=== PATIENT | female | born 1995 | race Caucasian/White ===

== ENCOUNTER 2016-03-31 19:14 | Outpatient (CLI) | payer OTHER ==
--- NOTE | 2016-03-31 20:00 | L&D Flow Sheet ---
LD Flowsheet Datetime Report Generated by CPN: 03/31/2016 20:00 Datetime: 03/31/2016 19:54 Pain Pain Scale: 3 (Dianne Ledgerwood, RN) Pain Presence: Constant (Dianne Ledgerwood, RN) Pain Type: Dull (Dianne Ledgerwood, RN) Vaginal Exam Vaginal Bleeding: None (Dianne Carbone, PROMISE) Maternal Assessment Level of Consciousness: Fully Conscious (Dianne Carbone, PROMISE) DTR's/Clonus: DTRs 2+; No Clonus (Dianne Carbone, PROMISE) Headache: Denies (Dianne Carbone RN) Breath Sounds, Left: Clear and Equal (Dianne Carbone RN) Breath Sounds, Right: Clear and Equal (Dianne Carbone, PROMISE) Nausea/Vomiting: Denies (Dianne Carbone RN) RUQ Epigastric Pain: Denies (Dianne Carbone RN)
[2016-03-31 20:10] LABS: AMNISURE (ROM) NEGATIVE (NEGATIVE)
[2016-03-31 20:15] LABS: APPEARANCE,URINE SLIGHTLY-CLOUDY; BILIRUBIN,URINE NEGATIVE (NEGATIVE); GLUCOSE, URINE NEGATIVE (NEGATIVE); KETONES,URINE NEGATIVE (NEGATIVE); LEUKOCYTE ESTERASE,URINE NEGATIVE (NEGATIVE); NITRITE,URINE NEGATIVE (NEGATIVE); PROTEIN,URINE NEGATIVE (NEGATIVE); URINE SPECIFIC GRAVITY 1.029; UROBILINOGEN,URINE NEGATIVE mg/dL (<2.0)
[2016-03-31 20:34] LABS: URINE BARBITURATES SCREEN NEGATIVE; URINE METHADONE SCREEN NEGATIVE; URINE OPIATES LOW NEGATIVE; URINE PHENCYCLIDINE SCREEN NEGATIVE
== END 2016-03-31 20:33 | disposition home or self-care (01) ==
LOC: LC 19:14
PROVIDERS: ATTEND Obstetrics & Gynecology
PROC: 4A1HXCZ Monitoring of Products of Conception, Cardiac Rate, External Approach (ICD-10-PCS; principal; 2016-03-31)
DX: Z34.92 Encounter for supervision of normal pregnancy, unspecified, second trimester (principal); Z3A.22 22 weeks gestation of pregnancy
CPT/HCPCS: 80307; 81001; 84112

== ENCOUNTER 2016-07-25 16:35 | Outpatient (CLI) | payer OTHER ==
[2016-07-25 17:43] LABS: ABSOLUTE EOSINOPHILS # (AUTO) 0.1 10^3/uL (0.0-0.6); ABSOLUTE MONOCYTES (AUTO) 1.3 10^3/uL (0.1-1.4); ABSOLUTE NEUT (AUTO) 6.3 10^3/uL (1.7-8.2); BASOPHILS % (AUTO) 0.2 % (0-2); EOSINOPHILS % (AUTO) 1.5 % (0-6); HEMATOCRIT 37.2 % (36.0-47.0); HEMOGLOBIN 12.2 g/dL (12.0-15.5); HGB HCT DIFFERENCE -0.6; LYMPHOCYTES % (AUTO) 20.2 % (13-45); MEAN CORPUSCULAR HEMOGLOBIN 29.2 pg (27.0-33.4); MEAN CORPUSCULAR HGB CONC 32.7 g/dL (32.0-36.0); MEAN CORPUSCULAR VOLUME 89 fl (80-97); MONOCYTES % (AUTO) 13.4 % (3-13); RED BLOOD COUNT 4.17 10^6/uL (3.72-5.28); RED CELL DISTRIBUTION WIDTH 13.7 % (11.5-14.0); SEGMENTED NEUTROPHILS % (AUTO) 64.7 % (42-78); WHITE BLOOD COUNT 9.7 10^3/uL (4.0-10.5)
--- NOTE | 2016-07-25 17:56 | Non Stress Test Report ---
Non Stress Test Datetime Report Generated by CPN: 07/25/2016 17:56 DEMOGRAPHIC EGA NST: 39.3 INDICATION Indication for Study: Other MONITORING Monitor Explained: Monitor Explained; Test Explained; Patient Verbalized Understanding Time on Monitor: 07/25/2016 16:50 Time off Monitor: 07/25/2016 17:17 NST Duration: 27 NST INTERVENTIONS NST Interventions: PO Hydration Physician Notified NST: DR WEBSTER BABY A: [id number] BABY A Movement : Present Contraction Frequency : x3 FHR Baseline : 135 Accelerations : 15X15 Decelerations : None Variability : Moderate 6-25bpm NST Review: Meets Criteria for Reactive NST NST Review and Verified By : REINIER MONTERROSO RN NST Results: Reactive NST REPORT Report Trigger: Send Report
[2016-07-25 18:02] LABS: ALANINE AMINOTRANSFERASE 31 U/L (9-52); ALBUMIN 3.4 g/dL (3.5-5.0); ALKALINE PHOSPHATASE 159 U/L (38-126); ANION GAP 11 (5-19); ASPARTATE AMINO TRANSFERASE 19 U/L (14-36); BILIRUBIN,DIRECT 0.2 mg/dL (0.0-0.4); BILIRUBIN,TOTAL 0.3 mg/dL (0.2-1.3); BLOOD UREA NITROGEN 12 mg/dL (7-20); CALCIUM 9.6 mg/dL (8.4-10.2); CARBON DIOXIDE 20 mmol/L (22-30); CHLORIDE 107 mmol/L (98-107); CREATININE RESULT 0.54 mg/dL (0.52-1.25); GLUCOSE 76 mg/dL (75-110); LDH 255 U/L (313-618); POTASSIUM 4.4 mmol/L (3.6-5.0); SODIUM 137.8 mmol/L (137-145); TOTAL PROTEIN 6.3 g/dL (6.3-8.2); URIC ACID 4.8 mg/dL (2.5-6.2)
[2016-07-25 18:07] LABS: APPEARANCE,URINE CLEAR; BILIRUBIN,URINE NEGATIVE (NEGATIVE); GLUCOSE, URINE NEGATIVE (NEGATIVE); KETONES,URINE NEGATIVE (NEGATIVE); LEUKOCYTE ESTERASE,URINE NEGATIVE (NEGATIVE); NITRITE,URINE NEGATIVE (NEGATIVE); PROTEIN,URINE NEGATIVE (NEGATIVE); UROBILINOGEN,URINE NEGATIVE mg/dL (<2.0)
[2016-07-25 18:25] LABS: URINE CREATININE 169.2 mg/dL (16-327); URINE PROTEIN 7.5 mg/dL (<12)
== END 2016-07-25 19:20 | disposition home or self-care (01) ==
LOC: LC 16:35
PROVIDERS: ATTEND Student in an Organized Health Care Education/Training Program
PROC: 4A1HXCZ Monitoring of Products of Conception, Cardiac Rate, External Approach (ICD-10-PCS; principal; 2016-07-25)
DX: O16.3 Unspecified maternal hypertension, third trimester (principal); Z3A.39 39 weeks gestation of pregnancy
CPT/HCPCS: 36415; 59025; 80053; 81001; 82570; 83615; 84156; 84550; 85025

== ENCOUNTER 2016-07-27 12:01 | Outpatient (CLI) | payer OTHER ==
[2016-07-27 12:44] LABS: ABSOLUTE EOSINOPHILS # (AUTO) 0.1 10^3/uL (0.0-0.6); ABSOLUTE LYMPHOCYTES (AUTO) 1.8 10^3/uL (0.5-4.7); ABSOLUTE MONOCYTES (AUTO) 1.2 10^3/uL (0.1-1.4); ABSOLUTE NEUT (AUTO) 5.2 10^3/uL (1.7-8.2); BASOPHILS % (AUTO) 0.4 % (0-2); EOSINOPHILS % (AUTO) 1.7 % (0-6); HEMATOCRIT 35.2 % (36.0-47.0); HEMOGLOBIN 11.6 g/dL (12.0-15.5); HGB HCT DIFFERENCE -0.4; LYMPHOCYTES % (AUTO) 21.6 % (13-45); MEAN CORPUSCULAR HEMOGLOBIN 29.2 pg (27.0-33.4); MEAN CORPUSCULAR VOLUME 89 fl (80-97); MONOCYTES % (AUTO) 14.8 % (3-13); RED BLOOD COUNT 3.97 10^6/uL (3.72-5.28); SEGMENTED NEUTROPHILS % (AUTO) 61.5 % (42-78); WHITE BLOOD COUNT 8.4 10^3/uL (4.0-10.5)
[2016-07-27 13:00] LABS: APPEARANCE,URINE CLOUDY; BILIRUBIN,URINE NEGATIVE (NEGATIVE); GLUCOSE, URINE NEGATIVE (NEGATIVE); KETONES,URINE NEGATIVE (NEGATIVE); LEUKOCYTE ESTERASE,URINE MODERATE (NEGATIVE); NITRITE,URINE NEGATIVE (NEGATIVE); PROTEIN,URINE 30 mg/dL (NEGATIVE); URINE SPECIFIC GRAVITY 1.027; UROBILINOGEN,URINE NEGATIVE mg/dL (<2.0)
[2016-07-27 13:07] LABS: BLOOD UREA NITROGEN 9 mg/dL (7-20); CALCIUM 8.8 mg/dL (8.4-10.2); CREATININE RESULT 0.53 mg/dL (0.52-1.25); GLUCOSE 76 mg/dL (75-110)
[2016-07-27 13:08] LABS: ALANINE AMINOTRANSFERASE 27 U/L (9-52); ALBUMIN 2.8 g/dL (3.5-5.0); ALKALINE PHOSPHATASE 146 U/L (38-126); ANION GAP 8 (5-19); ASPARTATE AMINO TRANSFERASE 17 U/L (14-36); BILIRUBIN,DIRECT 0.3 mg/dL (0.0-0.4); BILIRUBIN,TOTAL 0.4 mg/dL (0.2-1.3); CARBON DIOXIDE 19 mmol/L (22-30); CHLORIDE 108 mmol/L (98-107); POTASSIUM 4.1 mmol/L (3.6-5.0); SODIUM 134.5 mmol/L (137-145); TOTAL PROTEIN 5.5 g/dL (6.3-8.2); URIC ACID 4.7 mg/dL (2.5-6.2)
[2016-07-27 13:19] LABS: URINE BARBITURATES SCREEN NEGATIVE; URINE METHADONE SCREEN NEGATIVE; URINE OPIATES LOW NEGATIVE; URINE PHENCYCLIDINE SCREEN NEGATIVE
[2016-07-27 13:24] LABS: URINE CREATININE 201.1 mg/dL (16-327); URINE PROTEIN 6.9 mg/dL (<12)
--- NOTE | 2016-07-27 13:42 | Non Stress Test Report ---
Non Stress Test Datetime Report Generated by CPN: 07/27/2016 13:42 DEMOGRAPHIC EGA NST: 39.5 INDICATION Indication for Study: Ordered by Provider Indication for Study (NST) Other: pih work up MONITORING Monitor Explained: Monitor Explained; Test Explained; Patient Verbalized Understanding Time on Monitor: 07/27/2016 11:53 Time off Monitor: 07/27/2016 13:31 NST Duration: 98 NST INTERVENTIONS NST Interventions: PO Hydration; Reposition Patient BABY A: [id number] BABY A Contraction Frequency : 0 FHR Baseline : 120 Accelerations : 15X15 Variability : Moderate 6-25bpm NST Review: Meets Criteria for Reactive NST NST Review and Verified By : Sima Camp RNC NST Results: Reactive NST REPORT Report Trigger: Send Report
== END 2016-07-27 13:45 | disposition home or self-care (01) ==
LOC: LC 12:01
PROVIDERS: ATTEND Specialist
PROC: 4A1HXCZ Monitoring of Products of Conception, Cardiac Rate, External Approach (ICD-10-PCS; principal; 2016-07-27)
DX: O16.3 Unspecified maternal hypertension, third trimester (principal); Z3A.39 39 weeks gestation of pregnancy
CPT/HCPCS: 36415; 59025; 80053; 80307; 81001; 82570; 84156; 84550; 85025

== ENCOUNTER 2016-08-02 00:34 | Inpatient (IN) | payer OTHER ==
[2016-08-02 01:04] LABS: APPEARANCE,URINE CLEAR; BILIRUBIN,URINE NEGATIVE (NEGATIVE); GLUCOSE, URINE NEGATIVE (NEGATIVE); KETONES,URINE NEGATIVE (NEGATIVE); LEUKOCYTE ESTERASE,URINE NEGATIVE (NEGATIVE); NITRITE,URINE NEGATIVE (NEGATIVE); PROTEIN,URINE 30 mg/dL (NEGATIVE); UROBILINOGEN,URINE NEGATIVE mg/dL (<2.0)
[2016-08-02 01:05] LABS: AMNISURE (ROM) POSITIVE (NEGATIVE)
[2016-08-02] MEDS ORDERED: OXYTOCIN/NORMAL SALINE 1,000 ML IV PRN (01:36)
[2016-08-02 01:48] LABS: ABSOLUTE EOSINOPHILS # (AUTO) 0.2 10^3/uL (0.0-0.6); ABSOLUTE LYMPHOCYTES (AUTO) 2.8 10^3/uL (0.5-4.7); ABSOLUTE MONOCYTES (AUTO) 1.3 10^3/uL (0.1-1.4); BASOPHILS % (AUTO) 0.4 % (0-2); EOSINOPHILS % (AUTO) 1.6 % (0-6); HEMATOCRIT 36.2 % (36.0-47.0); HEMOGLOBIN 12.1 g/dL (12.0-15.5); HGB HCT DIFFERENCE 0.1; LYMPHOCYTES % (AUTO) 26.8 % (13-45); MEAN CORPUSCULAR HEMOGLOBIN 29.3 pg (27.0-33.4); MEAN CORPUSCULAR HGB CONC 33.4 g/dL (32.0-36.0); MEAN CORPUSCULAR VOLUME 88 fl (80-97); MONOCYTES % (AUTO) 12.6 % (3-13); RED BLOOD COUNT 4.13 10^6/uL (3.72-5.28); RED CELL DISTRIBUTION WIDTH 13.7 % (11.5-14.0); SEGMENTED NEUTROPHILS % (AUTO) 58.6 % (42-78); WHITE BLOOD COUNT 10.3 10^3/uL (4.0-10.5)
[2016-08-02] MEDS ORDERED: OXYTOCIN/NORMAL SALINE 20 UNIT/1,000 ML RTUINJ ONE (01:48)
[2016-08-02] MEDS ORDERED: PENICILLIN G-K 5 MILLION UNIT VIAL ONE ×6 (01:48→23:15)
[2016-08-02] MEDS ORDERED: PENICILLIN G-K 5 MILLION UNIT VIAL IV PRN (01:55)
[2016-08-02] MEDS ORDERED: PENICILLIN G POTASSIUM 5,000,000 UNIT in DEXTROSE 5%-WATER 100 ML IV ONE (02:00)
[2016-08-02] MEDS: RINGERS SOLUTION,LACTATED 1,000 ML IV PRN ×3 (02:00→09:40)
[2016-08-02 02:07] LABS: URINE BARBITURATES SCREEN NEGATIVE; URINE METHADONE SCREEN NEGATIVE; URINE OPIATES LOW NEGATIVE; URINE PHENCYCLIDINE SCREEN NEGATIVE
--- NOTE | 2016-08-02 08:12 | L&D Progress Notes ---
PROGRESS NOTES Datetime Report Generated by CPN: 08/02/2016 08:11 PROGRESS NOTE Impression: Normal Progression of Labor Impression: Normal Progression of Labor; Reassuring Heart Rate Procedures: Artificial ROM Procedures: Artificial ROM Procedures- Other: forbag, AROM Procedures- Other: forbag AROM, small clear Plan: Continue Present Management; Augmentation Plan: Augmentation Informed Consent Obtained: Vaginal Delivery Informed Consent Obtained: Vaginal Delivery Vital Signs : Reviewed Vital Signs : Reviewed Comment: Coping well with labor, desires epidural when ready AROM, forbag, clear Pt may have epidural Pitocin @ 14 mu s/p 2 doses pcn VAGINAL EXAM Dilatation: 4 Dilatation: 1 Effacement: 80 Effacement: 60 Station: -1 Station: -2 Contractions: every 2 min MEMBRANES Pooling: Positive Membranes: Ruptured Membranes: Ruptured Amniotic Fluid Color: Clear FETUS A FHR - Baseline: 120 Monitoring: External US Variability: Moderate 6-25bpm Accelerations: 15X15 Decelerations: None FHR Category: Category I : 40.0 Presentation: Vertex SIGNATURE SIGNATURE: ,[id number] SIGNATURE: ,[id number] SIGNATURE: [id number] Assignment: Esperanza Perkins MD Signature: with User ID: [email or web address] : with User ID: Ligia
[2016-08-02] MEDS ORDERED: FENTANYL/BUPIVACAINE/NS/PF 100 ML EPI PRN (08:22)
[2016-08-02] MEDS ORDERED: BENZOIN/ALOE VERA/STORAX/TOLU TINCTURE 60 ML TP PRN (08:22)
[2016-08-02] MEDS ORDERED: BUPIVACAINE HCL 0.25 % INJ/PF (2.5 MG/1 ML) 30 ML VIAL INFIL ONE (08:22)
[2016-08-02] MEDS ORDERED: EPHEDRINE SULFATE INJ 50 MG/1 ML AMPULE ONE (08:29)
[2016-08-02] MEDS ORDERED: FENTANYL CITRATE INJ/PF 100 MCG/2 ML AMPUL ONE (08:29)
[2016-08-02] MEDS ORDERED: PHENYLEPHRINE HCL INJ/PF 10 MG/1 ML SDV ONE (08:30)
[2016-08-02] MEDS ORDERED: FENTANYL/BUPIVACAINE/NS/PF 200 MCG/100 ML RTUINJ EPI ONE ×2 (08:30→19:51)
[2016-08-02] MEDS ORDERED: BUPIVACAINE HCL 0.25 % INJ/PF (2.5 MG/1 ML) 30 ML VIAL ONE (08:30)
[2016-08-02] MEDS ORDERED: LIDOCAINE 1% INJ-PF (10 MG/ML) 30 ML SDV ONE (08:36)
[2016-08-02] MEDS ORDERED: MISOPROSTOL 0.2 MG TABLET ONE (08:36)
[2016-08-02] MEDS: PENICILLIN G POTASSIUM 2,500,000 UNIT in DEXTROSE 5%-WATER 50 ML IV SCH ×2 (09:53→16:31)
--- NOTE | 2016-08-02 11:47 | L&D Progress Notes ---
PROGRESS NOTES Datetime Report Generated by CPN: 08/02/2016 11:47 PROGRESS NOTE Impression: Reassuring Heart Rate Procedures: Sterile Vag Exam Plan Other: Rest the pit for 35-40 min Vital Signs : Reviewed; Within Normal Limits Comment: Nauseated, vomiting Minimal change in SVE Will rest pitocin, D5LR [address] IUPC at next sve VAGINAL EXAM Dilatation: 4 Effacement: 80 Station: 0 Contractions: every 2 min MEMBRANES Membranes: Ruptured FETUS A FHR - Baseline: 135 Monitoring: External US Variability: Moderate 6-25bpm Accelerations: 15X15 Decelerations: None FHR Category: Category I FETUS C SIGNATURE: [id number];10,[id number] Assignment: Esperanza Perkins MD Signature: with User ID: [email or web address] : with User ID: [email or web address]
[2016-08-02] MEDS ORDERED: LIDOCAINE 2%/EPINEPHRINE INJ 20 ML VIAL ONE (13:52)
[2016-08-02] MEDS ORDERED: SODIUM BICARBONATE 8.4% INJ 50 MEQ/50 ML DISP.SYRIN ONE (13:52)
[2016-08-02] MEDS ORDERED: ACETAMINOPHEN 325 MG TABLET PO ONE (17:04)
[2016-08-02] MEDS ORDERED: GENTAMICIN SULFATE INJ 80 MG/2 ML VIAL IV ONE (17:04)
--- NOTE | 2016-08-02 17:13 | L&D Progress Notes ---
PROGRESS NOTES Datetime Report Generated by CPN: 08/02/2016 17:12 PROGRESS NOTE Impression: Normal Progression of Labor Procedures: Intrauterine Pressure Catheter; Sterile Vag Exam Plan: Continue Present Management; Induction Informed Consent Obtained: Vaginal Delivery; Risks, Benefits and Alternatives Discussed Vital Signs : Reviewed; Within Normal Limits Comment: cvx check at 1530 and noted change to 5/c/0. reviewed progress noted and would recommend with Reassuring FWB to continue with IOL and pitocin. IUPC placed and will monitor for adequate MVUs. Will start Gent as well since pt now ruptured for approx 18hours. Pt is already on PCN. Cont PCN. Recheck cvx in approx 2hours. pelvis adequate for JORDON. efw 8# VAGINAL EXAM Dilatation: 5 Effacement: 100 Station: 0 MEMBRANES Pooling: Positive Ferning Results: Positive Membranes: Ruptured FETUS A FHR - Baseline: 160 Monitoring: External US Variability: Moderate 6-25bpm Decelerations: None FHR Category: Category I FETUS C SIGNATURE: [id number];[id number] Signature: with User ID: [email or web address]
[2016-08-02] MEDS ORDERED: ACETAMINOPHEN 325 MG TABLET ONE ×2 (17:21→17:30)
--- NOTE | 2016-08-02 17:26 | L&D Progress Notes ---
PROGRESS NOTES Datetime Report Generated by CPN: 08/02/2016 17:26 PROGRESS NOTE Impression: Reassuring Heart Rate Procedures: Scalp Electrode Plan: Antibiotic Therapy Plan Other: will call ansthesia to evaluate pt Comment: Pt very uncomfortable wit ctx. Will call anesthesia to evaluate. Continue pitocin, abx Dr. Perkins updated VAGINAL EXAM Dilatation: 5 Effacement: 100 Station: 0 Contractions: 2-3 MEMBRANES Membranes: Ruptured FETUS A FHR - Baseline: 160 Monitoring: External US Accelerations: 15X15 Decelerations: None FHR Category: Category I FETUS C SIGNATURE: [id number];10,[id number] Assignment: Esperanza Perkins MD Signature: with User ID: [email or web address] : with User ID: Ligia
[2016-08-02] MEDS ORDERED: NALOXONE HCL INJ 2 MG/2 ML DISP.SYRIN IV ONE (17:28)
[2016-08-02] MEDS ORDERED: NALBUPHINE HCL INJ 10 MG/1 ML AMPULE ONE (17:41)
[2016-08-02] MEDS ORDERED: GENTAMICIN SULFATE 200 MG in DEXTROSE 5%-WATER 100 ML IV ONE (18:00)
[2016-08-03] MEDS ORDERED: DEXTROSE 5% IV SCH (02:00)
[2016-08-03] MEDS ORDERED: GENTAMICIN SULFATE IV SCH (02:00)
[2016-08-03] MEDS ORDERED: WATER IV SCH (02:00)
[2016-08-03] MEDS ORDERED: OXYTOCIN/NORMAL SALINE 20 UNIT/1,000 ML RTUINJ ONE (02:55)
[2016-08-03] MEDS ORDERED: OXYTOCIN 10 UNIT/ML VIAL ONE (03:13)
[2016-08-03] MEDS ORDERED: FENTANYL CITRATE INJ/PF 100 MCG/2 ML AMPUL ONE (03:16)
[2016-08-03] MEDS ORDERED: ACETAMINOPHEN WITH CODEINE #3 TABLET PO PRN (05:09)
[2016-08-03] MEDS ORDERED: DIBUCAINE 1% OINTMENT 28 GM TP PRN (05:09)
[2016-08-03] MEDS ORDERED: OXYTOCIN/NORMAL SALINE 1,000 ML IV PRN (05:09)
[2016-08-03] MEDS ORDERED: DIPH/PERTUSS(ACELL)/TETANUS VAC/PF 0.5 ML SYR (>=10YO) IM PRN (05:09)
[2016-08-03] MEDS ORDERED: MEASLES,MUMPS&RUBELLA VACC/PF 0.5 ML VIAL SUBCUT PRN (05:09)
[2016-08-03] MEDS ORDERED: BENZOCAINE/MENTHOL AEROSOL SPRAY 56 ML TOP PRN (05:09)
[2016-08-03] MEDS ORDERED: ZOLPIDEM TARTRATE 5 MG TABLET PO PRN (05:09)
--- NOTE | 2016-08-03 05:13 | Delivery Summary ---
Del Sum A-C Datetime Report Generated by CPN: 08/03/2016 05:12 DELIVERY PERSONNEL DELIVERY PERSONNEL: [id number];[id number];[id number] Delivery Doctor:: Esperanza Perkins MD Labor and Delivery Nurse:: Dianna Tapia RN Labor and Delivery Nurse:: Laura Paul RN Nursery Nurse:: Ankita Griffiths RN Steam Box Operator/MANAGER IMMUNOLOGY: Vianey Marion CST Steam Box Operator/REED: Julee Yun CNA Additional Personnel: : Bailey Sandoval RN MATERNAL INFORMATION Delivery Anesthesia: Epidural Medications After Delivery: Pitocin 10 Units IM; Pitocin Drip 20 Units/1000ml NSS Estimated Blood Loss (ml): 400 Maternal Complications: Premature Rupture of Membranes; Maternal Fever; Prolonged Second Stage > 2 Hrs Provider Comments: Pt evaluated after pushing for approximately 2.5 hours after reaching complete. fetus converted spontaneously from OP to MILE while pushing. position verified and bladder drained. FHR tracing Cat I. REviewed risks of operative vaginal delivery with pt and patient and family agreed for Forceps assisted vaginal delivery. c/c/+2 to +3 with pushing. Admitted for SROM. Jones Leukhart non fenestrated blades applied in the usual fashion with easy articulation then released. On next contraction Forceps articulated and 2 contraction maternal push/pull sets performed. infant to c/c/+4 and forceps disarticulated. then delivered with maternal effort in the next 2 pushes. Infant delivered in Direct Op presentation. No nuchal cord. Shoulders and body delivered without difficulty. Cord doubly clamped and cut and to maternal abdomen. Placenta delivered intact spontaneously. FF at U. Right vaginal sidewall repaired in the usual fashion with good hemostasis. Apgars 8/9. Weight pending. Mother and baby stable upon provider leaving the room. LABOR SUMMARY EDC: 07/29/2016 00:00 No. Babies in Womb: 1 Attempted: No Labor Anesthesia: Epidural LABOR INFORMATION Reason for Induction: Premature Rupture of Membranes (Annotations: Data stored by CPN on behalf of user) Onset of Labor: 08/02/2016 07:39 Complete Dilatation: 08/02/2016 21:24 Oxytocin: Augmentation (Annotations: Data stored by CPN on behalf of user) Group B Beta Strep: Positive Antibiotics # of Doses: 5 Antibiotics Time of Last Dose: 2324 Name of Antibiotic Given: PENICILLIN G Steroids Given: None Reason Steroids Not Administered: Not Applicable MEMBRANES Membranes Rupture Method: Artificial Rupture of Membranes: 08/02/2016 00:15 Length of Rupture (hr): 26.82 Amniotic Fluid Color: Clear Amniotic Fluid Amount: Small Amniotic Fluid Odor: Normal (Annotations: Data stored by N on behalf of user) STAGES OF LABOR Stage 1 hr: 13 Stage 1 min: 45 Stage 2 hr: 5 Stage 2 min: 40 Stage 3 hr: 0 Stage 3 min: 4 Total Time in Labor hr: 19 Total Time in Labor min: 29 VAGINAL DELIVERY Episiotomy: None Laceration Extension: N/A Laceration Type: Vaginal Laceration Repair: Yes Laceration Repair Note: Deep Right vaginal sidewall on right repaired in usual fashion. Good hemostasis Sponge Count Correct: Yes Sharps Count Correct: Yes CSECTION DELIVERY Primary Indication: N/A Secondary Indication: N/A CSection Incidence: N/A Labor: N/A Elective: N/A CSection Incision: N/A BABY A INFORMATION Infant Delivery Date/Time: 08/03/2016 03:04 Method of Delivery: Vaginal Born in Route : No : N/A Forceps: Low Vacuum Extraction: N/A Shoulder Dystocia : No PRESENTATION/POSITION BABY A Presentation: Cephalic Cephalic Presentation: Vertex Vertex Position: OA Breech Presentation: N/A PLACENTA INFORMATION BABY A Placenta Delivery Time : 08/03/2016 03:08 Placenta Method of Delivery: Spontaneous Placenta Status: Delivered SCORES BABY A Heart Rate 1 min: >100 bpm Resp Effort 1 min: Good Cry Reflex Irritability 1 min: Cough or Sneeze or Pulls Away Muscle Tone 1 min: Some Flexion of Extremities Color 1 min: Body Graingers, Extremities Blue Resuscitation Effort 1 min: Tactile Stimulation SCORE 1 MIN: 8 Heart Rate 5 min: >100 bpm Resp Effort 5 min: Good Cry Reflex Irritability 5 min: Cough or Sneeze or Pulls Away Muscle Tone 5 min: Active Motion Color 5 min: Body Graingers, Extremities Blue SCORE 5 MIN: 9 INFORMATION BABY A Gestational Age at Delivery: 40.4 Gestational Status: Full Term- 39- 40.6 Weeks Infant Outcome : Liveborn Infant Condition : Stable Sex: Female IDENTIFICATION BABY A Verification Date/Time: 08/03/2016 03:12 ID Band Number: [id number] Mother's Name Verified: Yes Infant RN Verifying : LEONARD Mora Additional Verifying Personnel: A VanBeekom, BUILDINGS PAINTER WEIGHT/LENGTH BABY A Birthweight (gm): 3710 Weight (lb): 8 Infant Weight (oz): 3 Infant Length (in): 21.00 (Annotations: Data stored by [facility] on behalf of user) Infant Length (cm): 53.34 CORD INFORMATION BABY A No. Cord Vessels: 3 Nuchal Cord : N/A Cord Blood Taken: Yes-For Storage (Mom's Blood type +) Suction: None ASSESSMENT BABY A Infant Complications: None Infant Complications- Other: forceps delivery Physical Findings at Delivery: Caput Succedaneum; Molding of the Head Physical Findings- Other: meade on sides of face from forceps Respirations: Appears Normal Skin to Skin: Yes Skin to Skin Time (min): 90 Quality Assurance Supervisor Body/ALS Called : No Infant Care By: Kleber Cisse RN/ Christina Sandoval RN Transferred To: Remains with Mother BABY B INFORMATION : N/A SIGNATURES Signature: with User ID: [email or web address]
--- NOTE | 2016-08-03 05:48 | Admission Physical ---
Datetime Report Generated by CPN: 08/03/2016 05:48 CURRENT ADMISSION Chief Complaint: Uterine Contractions; Suspected Ruptured Membranes Indication for Induction: Post Dates; PROM Admit Plan: Admit to Unit; Initiate Labor Induction Protocol ALLERGIES Medication Allergies: No Medication Allergies: No Known Allergies (08/02/2016) Medication Allergies: No Known Allergies (07/25/2016) Medication Allergies: No Known Allergies (03/31/2016) Latex: No Latex Allergies OBSTETRICAL HISTORY EDC: 07/29/2016 00:00 : 1 Para: 0 Para: 0 Term: 0 : 0 SAB: 0 IAB: 0 Ectopic: 0 Livin Cesareans: 0 VBACs: 0 Multiple Births: 0 Gestational Diabetes: No Rh Sensitization: No Incompetent Cervix: No JAYSHREE: No Infertility: No ART Treatment: No Uterine Anomaly: No IUGR: No Hx Previous C/S: No Macrosomia: No Hx Loss/Stillborn: No PIH: No Hx : No Depression/PP Depression: No PTL/PROM: No Post Hemorrhage: No Current Procedures: Ultrasound; NST Obstetrical History Comments: G1 current SEE RECORDS Alcohol: No Marijuana : No Cocaine: No Other Illicit Drugs: No Cigarettes: Never Smoker. [id number] MEDICAL HISTORY Diabetes: No Blood Transfusion: No Pulmonary Disease (Asthma, TB): No Breast Disease: No Hypertension: No Director Of Clinical Services Surgery: No Heart Disease: No Hosp/Surgery: No Autoimmune Disorder: No Anesthetic Complications: No Kidney Disease: No Abnormal Pap Smear: No Neuro/Epilepsy: No Psychiatric Disorders: No Other Medical Diseases: No Hepatitis/Liver Disease: No Significant Family History: No Varicosities/Phlebitis: No Trauma/Violence : No Thyroid Dysfunction: No INFECTIOUS HISTORY Gonorrhea: No Genital Herpes: No Chlamydia: No Tuberculosis: No Syphilis: No Hepatitis: No HIV/AIDS Exposure: No Rash or Viral Illness: No HPV: No PHYSICAL EXAM General: Normal HEENT: Normal Neurologic: Normal Thyroid: Normal Heart: Normal Lungs: Normal Breast: Deferred Back: Normal Abdomen: Normal Genitourinary Exam: Normal Extremities: Normal DTRs: Normal Pelvic Type: Adequate Vital Signs: Reviewed VAGINAL EXAM Dilatation: 5 Dilatation: 5 Dilatation: 4 Dilatation: 4 Dilatation: 1 Effacement: 100 Effacement: 100 Effacement: 80 Effacement: 80 Effacement: 60 Station: 0 Station: 0 Station: 0 Station: -1 Station: -2 Contraction Comments: 2-3 Contraction Comments: every 2 min Contraction Comments: every 2 min MEMBRANES Pooling: Positive Pooling: Positive Ferning Results: Positive Membranes: Ruptured Membranes: Ruptured Membranes: Ruptured Membranes: Ruptured Membranes: Ruptured Amniotic Fluid Color: Clear FETUS A EGA: 40.4 FHR- Baseline: 120 Variability: Moderate 6-25bpm Accelerations: 15X15 Decelerations: None FHR Category: Category I Presentation: Vertex Admit Comment: GBS pos will treat. Begin pitocin PLANS FOR LABOR AND DELIVERY Labor and Delivery: None Pain Management: Epidural Feeding Preference: Breast Benefit of Breast Feed Discussed: Yes Circumcision: N/A INFORMED CONSENT Informed Consent Obtained: Vaginal Delivery; Risks, Benefits and Alternatives Discussed Informed Consent Obtained: Vaginal Delivery; Risks, Benefits and Alternatives Discussed Informed Consent Obtained: Vaginal Delivery Informed Consent Obtained: Vaginal Delivery Signature: with User ID: [email or web address]
[2016-08-03] MEDS: IBUPROFEN 800 MG TABLET PO SCH ×3 (06:45→22:46)
[2016-08-03] MEDS: ACETAMINOPHEN WITH CODEINE #3 TABLET PO PRN ×2 (08:53→17:43)
[2016-08-03] MEDS: PRENATAL VITAMIN W-O CA NO5/FE FUMARATE/FA CAPSULE PO SCH (09:31)
[2016-08-03] MEDS: DOCUSATE SODIUM 100 MG CAPSULE PO SCH ×2 (09:31→17:44)
[2016-08-03] MEDS: FERROUS SULFATE 325 MG TABLET PO SCH ×2 (09:32→17:43)
[2016-08-03] MEDS: SENNOSIDES/DOCUSATE 8.6-50 MG 1 EACH TABLET PO SCH (09:32)
--- NOTE | 2016-08-03 12:22 | PDOC PROGRESS REPORT ---
Subjective-OB Subjective: Post Delivery Day: 1 20 year old G1 now P1 s/p forcep assisted vaginal delivery. Reports vaginal and perineal soreness well controlled with pain medication at this time. Denies any needs at this time Physical Exam (OB) Vital Signs: Temp Pulse Resp BP Pulse Ox 98.9 F 125 H 20 145/83 H 97 08/03/16 05:54 08/03/16 05:54 08/03/16 05:54 08/03/16 05:54 08/03/16 05:54 Intake & Output 08/02/16 08/03/16 08/04/16 06:59 06:59 06:59 Weight 96.95 kg - General General Appearance: Appears well In distress: None - PIH/Pre-Eclampsia Headache: Absent Epigastric Pain: No Visual Changes: No - Lochia Lochia Amount: Moderate 25-50 ml Lochia Color: Rubra/Red - Abdomen Description: Tender, Soft Hernia Present: No Fundal Description: Midline Fundal Height: u/u - u/2 - Respiratory Respiratory Status: No respiratory distress - Extremities Upper extremity: Normal inspection Lower extremities: Normal inspection - Neurological Orientation: AAOx4 - Psychological Associated symptoms: Normal affect, Normal mood Objective-Diagnostic Laboratory: 08/02/16 01:35 Assessment and Plan(PN) - Assessment and Plan (1) Forceps delivery Is this a current diagnosis for this admission?: YesPlan: continue stay - Time Spent with Patient Time with patient: 15-25 minutes Medications reviewed and adjusted accordingly: Yes - Disposition Anticipated Discharge: Home Within: within 24 hours
[2016-08-04] MEDS: IBUPROFEN 800 MG TABLET PO SCH ×3 (06:50→22:30)
[2016-08-04 08:08] LABS: HEMATOCRIT 26.6 % (36.0-47.0); HGB HCT DIFFERENCE -0.8; MEAN CORPUSCULAR HEMOGLOBIN 28.8 pg (27.0-33.4); MEAN CORPUSCULAR HGB CONC 32.3 g/dL (32.0-36.0); MEAN CORPUSCULAR VOLUME 89 fl (80-97); RED BLOOD COUNT 2.98 10^6/uL (3.72-5.28); RED CELL DISTRIBUTION WIDTH 14.6 % (11.5-14.0); WHITE BLOOD COUNT 12.7 10^3/uL (4.0-10.5)
[2016-08-04 08:09] LABS: HEMOGLOBIN 8.6 g/dL (12.0-15.5)
[2016-08-04] MEDS: SENNOSIDES/DOCUSATE 8.6-50 MG 1 EACH TABLET PO SCH (10:25)
[2016-08-04] MEDS: FERROUS SULFATE 325 MG TABLET PO SCH ×2 (10:25→17:56)
[2016-08-04] MEDS: DOCUSATE SODIUM 100 MG CAPSULE PO SCH ×2 (10:25→17:56)
[2016-08-04] MEDS: PRENATAL VITAMIN W-O CA NO5/FE FUMARATE/FA CAPSULE PO SCH (10:26)
--- NOTE | 2016-08-04 11:13 | PDOC PROGRESS REPORT ---
Subjective-OB Subjective: Post Delivery Day: 20 year old. Denies any needs at this time Physical Exam (OB) Vital Signs: Temp Pulse Resp BP Pulse Ox 98.0 F 94 16 112/66 95 08/04/16 08:11 08/04/16 08:11 08/04/16 08:11 08/04/16 08:11 08/04/16 08:11 Intake & Output 08/03/16 08/04/16 08/05/16 06:59 06:59 06:59 Intake Total 240 Balance 240 - PIH/Pre-Eclampsia Clonus: Negative Headache: Absent Epigastric Pain: No Visual Changes: No - Lochia Lochia Amount: Small 10-25 ml Lochia Color: Rubra/Red - Abdomen Description: Soft Hernia Present: No Bowel Sounds: Normoactive Flatus Presence: Present Stool: No Fundal Description: Firm Fundal Height: u/u - u/2 Objective-Diagnostic Laboratory: 08/04/16 07:18 08/04/16 07:18 WBC 12.7 H RBC 2.98 L Hgb 8.6 L D Hct 26.6 L MCV 89 MCH 28.8 MCHC 32.3 RDW 14.6 H Plt Count 207 Assessment and Plan(PN) - Time Spent with Patient Medications reviewed and adjusted accordingly: Yes - Disposition Anticipated Discharge: Home
[2016-08-04 21:48] LABS: ABSOLUTE EOSINOPHILS # (AUTO) 0.2 10^3/uL (0.0-0.6); ABSOLUTE MONOCYTES (AUTO) 1.4 10^3/uL (0.1-1.4); ABSOLUTE NEUT (AUTO) 5.8 10^3/uL (1.7-8.2); BASOPHILS % (AUTO) 0.3 % (0-2); EOSINOPHILS % (AUTO) 2.2 % (0-6); HEMATOCRIT 25.7 % (36.0-47.0); HEMOGLOBIN 8.3 g/dL (12.0-15.5); HGB HCT DIFFERENCE -0.8; LYMPHOCYTES % (AUTO) 28.7 % (13-45); MEAN CORPUSCULAR HEMOGLOBIN 29.1 pg (27.0-33.4); MEAN CORPUSCULAR HGB CONC 32.4 g/dL (32.0-36.0); MEAN CORPUSCULAR VOLUME 90 fl (80-97); MONOCYTES % (AUTO) 13.5 % (3-13); RED BLOOD COUNT 2.85 10^6/uL (3.72-5.28); RED CELL DISTRIBUTION WIDTH 14.2 % (11.5-14.0); SEGMENTED NEUTROPHILS % (AUTO) 55.3 % (42-78); WHITE BLOOD COUNT 10.4 10^3/uL (4.0-10.5)
[2016-08-05] MEDS: IBUPROFEN 800 MG TABLET PO SCH (05:17)
[2016-08-05] MEDS: FERROUS SULFATE 325 MG TABLET PO SCH (09:19)
[2016-08-05] MEDS: PRENATAL VITAMIN W-O CA NO5/FE FUMARATE/FA CAPSULE PO SCH (09:20)
[2016-08-05] MEDS: SENNOSIDES/DOCUSATE 8.6-50 MG 1 EACH TABLET PO SCH (09:20)
[2016-08-05] MEDS: DOCUSATE SODIUM 100 MG CAPSULE PO SCH (09:20)
--- NOTE | 2016-08-05 10:13 | PDOC DISCHARGE SUMMARY ---
Final Diagnosis Discharge Date: 08/05/16 - Final Diagnosis (1) Acute blood loss anemia Is this a current diagnosis for this admission?: Yes (2) Forceps delivery Is this a current diagnosis for this admission?: Yes (3) Positive GBS test Is this a current diagnosis for this admission?: Yes Discharge Data - Discharge Medication Home Medications: [id number]/Iron Fumarate/FA/Dss [ 19 Tablet] 1 each PO DAILY 03/31/16 Acetaminophen with Codeine [Tylenol #3 Tablet] 2 each PO Q4HP PRN #20 tablet Docusate Sodium [Colace 100 mg Capsule] 100 mg PO BID #60 capsule 08/05/16 Ferrous Sulfate [Feosol 325 mg Tablet] 325 mg PO BID #60 tablet 08/05/16 Ibuprofen [Motrin 800 mg Tablet] 800 mg PO Q8 #60 tablet 08/05/16 Gestational Age: 40.1 Reason(s) for Admission: Onset of Labor, Group B Strep Positive Procedures: NST Intrapartum Procedure(s): Spontaneous Vaginal Delivery, Forceps-Low Laceration-Degree: 2nd - Data Baby 1 Female at 1 minute: 8 at 5 minutes: 9 Weight: 3710 kg Home with Mother: Yes Complications: No - Diagnosis Test Laboratory: Temp Pulse Resp BP Pulse Ox 98.5 F 99 18 139/82 H 98 08/05/16 07:59 08/05/16 07:59 08/05/16 07:59 08/05/16 07:59 08/05/16 07:59 08/02/16 08/02/16 08/04/16 00:45 01:35 07:18 RBC 4.13 2.98 L Hgb 12.1 8.6 L D Hct 36.2 26.6 L Urine Opiates Screen NEGATIVE 08/04/16 21:37 RBC 2.85 L Hgb 8.3 L Hct 25.7 L Urine Opiates Screen - Discharge information/Instructions Discharge Activity: Activity As Tolerated, Slowly Increase Activity, No tub bath Discharge Diet: Regular Disposition: HOME, SELF-CARE Follow up with: [facility] in: 1, Weeks - bp check
[2016-08-05 11:39] VITALS: BP 139/84
== END 2016-08-05 12:43 | disposition home or self-care (01) | DRG 774 ==
LOC: LC 00:34 → LR 01:17 → 2N 08-03 05:27
PROVIDERS: ADMIT Obstetrics & Gynecology; ATTEND Obstetrics & Gynecology
PROC: 10907ZC Drainage of Amniotic Fluid, Therapeutic from Products of Conception, Via Natural or Artificial Opening (ICD-10-PCS; 2016-08-02)
PROC: 4A1H7CZ Monitoring of Products of Conception, Cardiac Rate, Via Natural or Artificial Opening (ICD-10-PCS; 2016-08-02)
PROC: 10H073Z Insertion of Monitoring Electrode into Products of Conception, Via Natural or Artificial Opening (ICD-10-PCS; 2016-08-02)
PROC: 10D07Z3 Extraction of Products of Conception, Low Forceps, Via Natural or Artificial Opening (ICD-10-PCS; principal; 2016-08-03)
PROC: 0KQM0ZZ Repair Perineum Muscle, Open Approach (ICD-10-PCS; 2016-08-03)
DX: O63.1 Prolonged second stage (of labor) (principal); O75.2 Pyrexia during labor, not elsewhere classified; D62 Acute posthemorrhagic anemia; O99.824 Streptococcus B carrier state complicating childbirth; O99.02 Anemia complicating childbirth; O70.1 Second degree perineal laceration during delivery; O48.0 Post-term pregnancy; Z3A.40 40 weeks gestation of pregnancy; Z37.0 Single live birth
CPT/HCPCS: 36415; 80307; 81005; 84112; 85025; 85027; 86592; 86850; 86900; 86901; 94760; J1580; J2300; J2370; J2540; J2590; J3010; J3490

== ENCOUNTER 2016-08-06 08:33 | Emergency (ER) | payer OTHER ==
[2016-08-06 09:10] LABS: HEMOGLOBIN 9.1 g/dL (12.0-15.5); HGB HCT DIFFERENCE -0.7; MEAN CORPUSCULAR HEMOGLOBIN 29.2 pg (27.0-33.4); MEAN CORPUSCULAR HGB CONC 32.6 g/dL (32.0-36.0); MEAN CORPUSCULAR VOLUME 90 fl (80-97); RED BLOOD COUNT 3.13 10^6/uL (3.72-5.28); RED CELL DISTRIBUTION WIDTH 14.2 % (11.5-14.0); WHITE BLOOD COUNT 9.3 10^3/uL (4.0-10.5)
[2016-08-06 09:29] LABS: BAND NEUTROPHILS % (MANUAL) 1 % (3-5); BASOPHILS % (MANUAL) 0 % (0-2); EOSINOPHILS % (MANUAL) 1 % (0-6); LYMPHOCYTES % (MANUAL) 20 % (13-45); TOTAL CELLS COUNTED 100
[2016-08-06 09:30] LABS: ANISOCYTOSIS SLIGHT; HYPOCHROMASIA SLIGHT; OVALOCYTES SLIGHT; POIKILOCYTOSIS SLIGHT
[2016-08-06 10:08] VITALS: BP 146/97
--- NOTE | 2016-08-06 10:11 | ER Document Report ---
ED General - General Chief Complaint: Vaginal Bleeding Stated Complaint: VAGINAL BLEEDING Time Seen by Provider: 08/06/16 09:58 TRAVEL OUTSIDE OF THE [place] IN LAST 30 DAYS: No - HPI Patient complains to provider of: vaginal bleeding Notes: Patient coming in for evaluation vaginal bleeding. Patient is a was denies any past medical history. Patient denies any weakness dizziness. Patient states that whenever she sits up she has large golf ball to baseball size blood clots patient has used approximately 5 pads in the last 24 hours. Patient states compliant with her iron and vitamin tablets that she was discharged with. - Related Data Allergies/Adverse Reactions: No Known Allergies Allergy (Verified 08/06/16 08:37) Past Medical History - Social History Smoking Status: Unknown if Ever Smoked Chew tobacco use (# tins/day): No Frequency of alcohol use: None Drug Abuse: None Family History: Reviewed & Not Pertinent Patient has suicidal ideation: No Patient has homicidal ideation: No Renal/ Medical History: Denies: Hx Peritoneal Dialysis Surgical Hx: Negative - Immunizations Hx Diphtheria, Pertussis, Tetanus Vaccination: No Review of Systems - Review of Systems Constitutional: No symptoms reported EENT: No symptoms reported Cardiovascular: No symptoms reported Respiratory: No symptoms reported Gastrointestinal: No symptoms reported Genitourinary: No symptoms reported Female Genitourinary: Vaginal bleeding Musculoskeletal: No symptoms reported Skin: No symptoms reported Hematologic/Lymphatic: No symptoms reported Neurological/Psychological: No symptoms reported -: Yes All other systems reviewed and negative Physical Exam - Vital signs Vitals: Temp Pulse Resp BP Pulse Ox 98.5 F 97 20 158/98 H 98 08/06/16 08:37 08/06/16 08:37 08/06/16 08:37 08/06/16 08:37 08/06/16 08:37 Interpretation: Normal - General General appearance: Appears well, Alert - HEENT Head: Normocephalic, Atraumatic Eyes: Normal Pupils: PERRL - Respiratory Respiratory status: No respiratory distress Chest status: Nontender Breath sounds: Normal Chest palpation: Normal - Cardiovascular Rhythm: Regular Heart sounds: Normal auscultation Murmur: No - Abdominal Inspection: Normal Distension: No distension Bowel sounds: Normal Tenderness: Nontender Organomegaly: No organomegaly - Back Back: Normal, Nontender - Extremities General upper extremity: Normal inspection, Nontender, Normal color, Normal ROM , Normal temperature General lower extremity: Normal inspection, Nontender, Normal color, Normal ROM , Normal temperature, Normal weight bearing. No: Rik's sign - Neurological Neuro grossly intact: Yes Cognition: Normal Orientation: AAOx4 [place] Coma Scale Eye Opening: Spontaneous [place] Coma Scale Verbal: Oriented [place] Coma Scale Motor: Obeys Commands [place] Coma Scale Total: 15 Speech: Normal Motor strength normal: LUE, RUE, LLE, RLE Sensory: Normal - Psychological Associated symptoms: Normal affect, Normal mood - Skin Skin Temperature: Warm Skin Moisture: Dry Skin Color: Normal Course - Re-evaluation Re-evalutation: 08/06/16 10:17 Patient's hemoglobin has improved since her discharge. Patient otherwise his mother other signs of symptomatic anemia. I did discuss case with PARTS CLASSIFIER on- call who agrees with assessment plan patient to continue her medication as prescribed follow-up as directed - Vital Signs Vital signs: Temp Pulse Resp BP Pulse Ox 98.5 F 88 16 146/97 H 99 08/06/16 08:37 08/06/16 10:05 08/06/16 10:05 08/06/16 10:05 08/06/16 10:05 - Laboratory Result Diagrams: 08/06/16 08:46 Laboratory results interpreted by me: 08/06/16 08:46 RBC 3.13 L Hgb 9.1 L Hct 28.0 L RDW 14.2 H Band Neutrophils % 1 L Discharge - Discharge Clinical Impression: hemorrhage of vagina Condition: Good Disposition: HOME, SELF-CARE Instructions: Vaginal Bleeding ([facility]) Additional Instructions: Your hemoglobin today has improved since being discharged from the hospital. Please continue take your iron tablets vitamins as directed by her OB/ VINYL INSTALLER. Please keep your regular PARTS CLASSIFIER follow-up. Return to the ER symptoms worsen.
== END 2016-08-06 10:12 | disposition home or self-care (01) ==
LOC: ER 08:33
DX: O72.2 Delayed and secondary postpartum hemorrhage (principal)
CPT/HCPCS: 36415; 85025; 99284